=== PATIENT | female | born 1945 | race Caucasian/White ===

== ENCOUNTER 2025-02-21 17:18 | Emergency (ER) | payer MEDICARE ==
[~2025-02-21] VITALS: Ht 167.6 cm; Wt 91.0 kg
[2025-02-21 17:40] VITALS: O2SAT 97
[2025-02-21 18:22] LABS: BASOPHILS % 1.1 % (0.0-2.0); DIFFERENTIAL COMMENT 0; EOSINOPHILS % 5.8 % (0.0-5.0); HEMATOCRIT. 35.8 % (36.0-48.0); HEMOGLOBIN. 12.4 g/dL (12.0-16.0); LYMPHOCYTES % 28.8 % (20.0-50.0); MEAN CORPUSCULAR HEMOGLOBIN 27.5 pg (28.0-32.0); MEAN CORPUSCULAR HGB CONC 34.6 g/dL (31.0-37.0); MEAN CORPUSCULAR VOLUME 79.5 fL (81.0-99.0); MEAN PLATELET VOLUME 7.7 fl (7.4-10.4); MONOCYTES % 8.1 % (2.0-8.0); NEUTROPHILS % 56.2 % (40.0-76.0); PLATELET 237 x1000/uL (130-400); RED BLOOD CELL COUNT 4.51 mill/uL (4.2-5.4); RED CELL DISTRIBUTION WIDTH 14.9 % (11.6-14.6); WHITE BLOOD COUNT 8.2 x1000/uL (4.5-11.0)
[2025-02-21 18:29] LABS: CHLORIDE 106 mEq/L (98-107); POTASSIUM 3.9 mEq/L (3.5-5.1); SODIUM 141 mEq/L (136-145)
[2025-02-21 18:30] LABS: CARBON DIOXIDE 29 mEq/L (21-32)
[2025-02-21 18:31] LABS: CALCIUM 10.4 mg/dL (8.7-10.4)
[2025-02-21 18:35] LABS: CREATININE 0.9 mg/dL (0.6-1.0); GLUCOSE 105 mg/dL (70-105); UREA NITROGEN BLOOD 25 mg/dL (9-23)
[2025-02-21] MEDS: IBUPROFEN 600MG TABLET PO ONE (20:00)
[2025-02-21 22:08] VITALS: BP 182/61; PULSE 66; RESP 18; TEMP 36.7; O2SAT 97
== END 2025-02-21 22:10 | disposition home or self-care (01) ==
LOC: ER 17:18
DX: S09.8XXA Other specified injuries of head, initial encounter (principal); M25.551 Pain in right hip; M25.561 Pain in right knee; W19.XXXA Unspecified fall, initial encounter; Y93.89 Activity, other specified; Y92.89 Other specified places as the place of occurrence of the external cause; Y99.8 Other external cause status
CPT/HCPCS: 36415; 73502; 73552; 73560; 80048; 85025; 99284